=== PATIENT | female | born 1945 | race Caucasian/White ===

== ENCOUNTER → 2017-09-01 18:54 | Outpatient (CLI) | payer MEDICARE, BC ==
[2016-06-02 12:24] VITALS: BMI 28.8
[~2017-09-01 18:54] MED LIST: AMBIEN10 MG PO; ASPIRIN EC81 M1 PO; MEDROL DOSE PACK4 MG PO; OMEPRAZOLE CAP 20M; PACERONE100 MG PO; PRAVASTATIN SOD10 MG PO
== END | disposition home or self-care (01) ==
LOC: D.MAMMO 14:30
DX: Z12.31 Encounter for screening mammogram for malignant neoplasm of breast (principal)

== ENCOUNTER → 2017-09-23 16:47 | Outpatient (CLI) | payer MEDICARE, BC ==
[2016-06-02 12:24] VITALS: BMI 28.8
== END | disposition home or self-care (01) ==
LOC: D.MAMMO 15:00
DX: R92.8 Other abnormal and inconclusive findings on diagnostic imaging of breast (principal)

== ENCOUNTER → 2017-10-30 12:40 | Outpatient (CLI) | payer MEDICARE, OTHER ==
[2016-06-02 12:24] VITALS: BMI 28.8
[2017-10-31 07:22] LABS: IMMUNOGLOBULIN E 65 IU/mL (0-100)
[2017-11-02 10:10] LABS: ANA REFLEX - DIRECT Negative (Negative)
[2017-11-02 15:20] LABS: ANGIOTENSIN CONVERTING ENZYME 52 U/L (14-82)
[2017-11-03 17:11] LABS: FUNGAL - ASP FLAVUS Negative (Neg:<1:1); FUNGAL - ASP NIGER Negative (Neg:<1:1); FUNGAL - ASPER FUMIGATUS Negative (Neg:<1:1)
== END | disposition home or self-care (01) ==
LOC: D.RT 10-29 10:00 → D.LAB 10-29 11:00 → D.CT 10-29 11:30 → D.RT 12:40
PROVIDERS: Internal Medicine Pulmonary Disease
DX: D86.89 Sarcoidosis of other sites (principal)

== ENCOUNTER 2018-06-22 13:16 | Inpatient (IN) | payer MEDICARE, OTHER ==
[~2018-06-22] VITALS: Ht 168.9 cm; Wt 80.7 kg
--- NOTE | ~2018-06-22 | CN ---
PATIENT NAME:NURA LOYA MEDICAL RECORD: [id number] : 45 LOCATION:[facility] D.2116 ADMIT DATE: 06/23/18 ACCOUNT: [id number] CONSULTING PHYSICIAN: STEVEN PALOMARES MD REFERRING PHYSICIAN: VIOLA YEBOAH MD DATE OF CONSULTATION: 06/23/2018 HISTORY OF PRESENT ILLNESS: This is a 73-year-old female with a history of atrial fibrillation and no other significant cardiac history feeling bad for about the past week to 10 days. She was seen at Dr. Yeboah's office, found to have AFib with RVR as well as a urinary tract infection and intravascular volume depletion, feeling much better post-IV fluids and antibiotics. Rates are coming down somewhat. PAST MEDICAL HISTORY: Includes, 1. History of sarcoidosis. 2. Dyslipidemia. 3. Gastroesophageal reflux disease. 4. Hypertension. ALLERGIES: None known. MEDICATIONS: Typically include amiodarone 100 mg p.o. daily, pravastatin 10 every day, aspirin 81 every day. SOCIAL HISTORY: Lives here in [place]. 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 She is a nonsmoker, nondrinker. REVIEW OF SYSTEMS: The patient reports easy bruising but reports no swollen glands. The patient reports no fever, no night sweats, no significant weight gain, no significant weight loss. No significant exercise tolerance. The patient reports no dry eyes, no irritation, no vision change. Patient reports no difficulty hearing and no ear pain. Patient reports no frequent nose bleeds or nose and sinus problems. Patient reports on arm pain on exertion. No shortness of breath while lying down. No history of heart murmur. Patient reports no cough, no wheezing or coughing up blood. Patient reports no abdominal pain, no vomiting. Normal appetite. No diarrhea and not vomiting blood. No nausea and no constipation. Patient reports no incontinence. No difficulty urinating. No hematuria. No increased frequency. Patient reports no muscle aches. No weakness, no arthralgias, no back pain. No swelling of the extremities. Patient reports no abnormal mole, no jaundice, no rashes. Reports no loss of consciousness. No weakness and no numbness. No seizures, dizziness, or headaches. The patient reports no depression, no sleep disturbance, feeling safe in a relationship and no alcohol abuse. Patient reports on fatigue. Reports no runny nose or sinus pressure. No itching, no hives, and no frequent sneezing. PHYSICAL EXAMINATION: GENERAL: Pleasant female, no acute distress. VITAL SIGNS: 104/57, pulse 89 and regular. HEENT: Normocephalic, atraumatic. NECK: No JVD or bruit. HEART: Regular, II/ systolic ejection murmur. LUNGS: Good air excursion. ABDOMEN: Soft, nontender. CONSULT REPORT [id number] NURA LOYA EXTREMITIES: Pulses are well preserved, 2+ with no edema. NEUROLOGIC: Grossly intact. DIAGNOSTIC DATA: ECG confirms Afib. IMPRESSION AND PLAN: Suspect developed urinary tract infection. Subsequent atrial fibrillation, recurrent and intravascular volume depletion. We will increase amiodarone, continue IV fluids. The patient has been hesitant for anticoagulation in the past. Given this, may consider a CARY cardioversion at early standpoint. TRANSINT:[id number] Voice Confirmation ID: [id number] DOCUMENT ID: [id number] STEVEN PALOMARES MD at 1116 CC: [id number] DICTATION DATE: 06/23/18 0847 SUPERVISOR DRILLING AND SHOOTING: 06/23/18 0923 DIS IN 06/24/18 [facility] [address] [place] [address]
--- NOTE | ~2018-06-22 | MORECARE ---
CASE MANAGEMENT DISCHARGE SUMMARY PATIENT: NURA LOYA UNIT: [id number] ADM DATE: 06/23/18 AGE: 73 : 45 SEX: F ROOM/BED: D.2116 AUTHOR: YAW, CYBER SECURITY CONSULTANT PHYSICIAN: REFERRING PHYSICIAN: VIOLA MERRILL MD DATE OF SERVICE: 06/23/18 Discharge Plan Patient Name: NURA LOYA Facility: [facility]:[place] : 1945 Planned Disposition: Home Anticipated Discharge Date: 06/24/18 Discharge Date: 06/24/2018 Expected LOS: 1 Initial Reviewer: [email or web address] Initial Review Date: 06/25/2018 Generated: 06/25/18 10:28 am Patient Name: NURA LOYA Page [id number] All edits/amendments must be made on the electronic document DICTATION DATE: 06/25/18927 MUCKING MACHINE OPERATOR: 06/25/18927 RPT#: [id number] DC DATE:06/24/18 STATUS: DIS IN [facility] [address] [place] [address] END OF REPORT
[~2018-06-22 13:16] MED LIST changes: -OMEPRAZOLE CAP 20M; +OMEPRAZOLE20 M1 PO
[2018-06-22 13:49] LABS: BASOPHILS 0.3 % (0-2); EOSINOPHILS 0.4 % (0-7); HEMATOCRIT 38.7 % (36.0-48.0); HEMOGLOBIN 13.5 g/dL (12-16); IMMATURE GRANULOCYTES 0.1 % (0-5); LYMPHOCYTES 20.6 % (15-50); MCH 31.5 pg (26.0-34.0); MCHC 34.9 g/dL (31.0-37.0); MCV 90.2 fL (80.0-100.0); MEAN PLATELET VOLUME 10.1 fL (7.4-10.4); MONOCYTES 10.5 % (2-11); NEUTROPHILS 68.1 % (40-80); RBC 4.29 10x6/uL (4.00-5.40); RDW 13.2 % (11.5-14.5); WBC 7.4 10x3/uL (4.8-10.8)
[2018-06-22 13:51] LABS: PLATELET COUNT 229 10x3/uL (130-400)
[2018-06-22 14:00] VITALS: BP 123/79
[2018-06-22 14:01] LABS: APTT 30.9 SECONDS (22.8-39.4); INR 1.01 (0.85-1.17); PROTIME 12.9 SECONDS (11.6-15.0)
[2018-06-22 14:05] LABS: ALBUMIN 3.3 g/dL (3.4-5.0); ALKALINE PHOSPHATASE 99 U/L (46-116); ALT (SGPT) 16 U/L (10-68); BILIRUBIN - TOTAL 0.52 mg/dL (0.2-1.3); CALC OSMOLALITY 273 mosm/kg (275-300); CALCIUM 8.9 mg/dL (8.5-10.1); CARBON DIOXIDE 24.2 mmol/L (21.0-32.0); CHLORIDE - SERUM 100 mmol/L (98-107); GLUCOSE 110 mg/dL (74-106); PROTEIN - SERUM 8.4 g/dL (6.4-8.2); SODIUM 135 mmol/L (136-145); UREA NITROGEN 20 mg/dL (7-18); eGFR NON AFRICAN AMERICAN 26 mL/min (90-120)
[2018-06-22 14:15] LABS: CKMB 1.7 U/L (0.0-3.6); TROPONIN-I < 0.017 ng/mL (0.000-0.060)
[2018-06-22 15:00] VITALS: BP 120/67
[2018-06-22 16:33] VITALS: BP 119/72
[2018-06-22 17:30] VITALS: BP 110/75
[2018-06-22 17:40] LABS: APPEARANCE CLOUDY (CLEAR); COLOR YELLOW (YELLOW)
[2018-06-22 17:41] LABS: BILIRUBIN NEGATIVE (NEGATIVE); GLUCOSE NEGATIVE (NEGATIVE); KETONE NEGATIVE (NEGATIVE); NITRITE NEGATIVE (NEGATIVE); PROTEIN 1+ mg/dL (NEGATIVE); SPECIFIC GRAVITY 1.015 (1.005-1.020); UROBILINOGEN NORMAL (NORMAL)
[2018-06-22 17:43] LABS: BACTERIA FEW /hpf (NONE SEEN); EPITHELIAL CELLS 0-5 /hpf (0-5)
[2018-06-22 18:00] VITALS: BP 108/81
[2018-06-22 19:38] LABS: CKMB 1.9 U/L (0.0-3.6); CREATINE KINASE 115 UL (21-215)
[2018-06-22 19:50] LABS: TROPONIN-I < 0.017 ng/mL (0.000-0.060)
[2018-06-23] VITALS (7 sets, daily range): BP systolic 102–145; BP diastolic 56–69; Ht 168.9 cm; Wt 80.7 kg
[2018-06-23 01:31] LABS: CKMB 2.2 U/L (0.0-3.6); CREATINE KINASE 121 UL (21-215); TROPONIN-I < 0.017 ng/mL (0.000-0.060)
[2018-06-23 07:00] LABS: BASOPHILS 0.2 % (0-2); HEMATOCRIT 36.3 % (36.0-48.0); HEMOGLOBIN 12.1 g/dL (12-16); IMMATURE GRANULOCYTES 0.2 % (0-5); LYMPHOCYTES 20.4 % (15-50); MCH 30.7 pg (26.0-34.0); MCHC 33.3 g/dL (31.0-37.0); MCV 92.1 fL (80.0-100.0); MEAN PLATELET VOLUME 9.9 fL (7.4-10.4); MONOCYTES 17.4 % (2-11); NEUTROPHILS 59.8 % (40-80); PLATELET COUNT 206 10x3/uL (130-400); RBC 3.94 10x6/uL (4.00-5.40); RDW 13.2 % (11.5-14.5)
[2018-06-23 07:42] LABS: CALC OSMOLALITY 276 mosm/kg (275-300); CALCIUM 8.1 mg/dL (8.5-10.1); CARBON DIOXIDE 26.1 mmol/L (21.0-32.0); CHLORIDE - SERUM 103 mmol/L (98-107); CKMB 2.1 U/L (0.0-3.6); CREATINE KINASE 112 UL (21-215); CREATININE - SERUM 1.7 mg/dL (0.6-1.3); GLUCOSE 95 mg/dL (74-106); POTASSIUM - SERUM 3.9 mmol/L (3.5-5.1); SODIUM 137 mmol/L (136-145); TROPONIN-I < 0.017 ng/mL (0.000-0.060); UREA NITROGEN 20 mg/dL (7-18); eGFR NON AFRICAN AMERICAN 31 mL/min (90-120)
[2018-06-24] VITALS: BP 114/58
[2018-06-24 04:00] VITALS: BP 104/59
[2018-06-24 05:35] LABS: ANION GAP 12.6 mmol/L (8-16); CARBON DIOXIDE 26.4 mmol/L (21.0-32.0); CREATININE - SERUM 1.3 mg/dL (0.6-1.3)
[2018-06-24 07:46] VITALS: BP 113/71
[2018-06-24 11:43] VITALS: BP 112/71
[2018-06-24] MEDS ORDERED: CORDARONE200 MG PO (15:21)
== END 2018-06-24 16:05 | disposition home or self-care (01) | DRG 309 ==
LOC: D.ER 13:16 → D.EDHOLD 18:42 → OBSVTIME 18:42 → D.M2 18:42
PROVIDERS: Family Medicine
DX: I48.91 Unspecified atrial fibrillation (principal); N39.0 Urinary tract infection, site not specified; I12.9 Hypertensive chronic kidney disease with stage 1 through stage 4 chronic kidney disease, or unspecified chronic kidney disease; N18.3 Chronic kidney disease, stage 3 (moderate); N28.9 Disorder of kidney and ureter, unspecified; K21.9 Gastro-esophageal reflux disease without esophagitis; E78.5 Hyperlipidemia, unspecified; E86.9 Volume depletion, unspecified

== ENCOUNTER → 2019-03-30 09:34 | Outpatient (CLI) | payer MEDICARE, OTHER ==
[2018-06-23 13:28] VITALS: BMI 29.2
--- NOTE | ~2019-03-30 | EC ---
PATIENT:NURA LOYA DATE OF SERVICE: 03/30/19 SEX: F MEDICAL RECORD: [id number] DATE OF : 45 LOCATION:D.[facility] AGE OF PATIENT: 73 ADMISSION DATE: 03/30/19 REFERRING PHYSICIAN: INTERPRETING PHYSICIAN: STEVEN PALOMARES MD ECHOCARDIOGRAM REPORT ECHO CHARGES 4 ECHO COMPLETE Date: 03/30/19 CLINICAL DIAGNOSIS: CAD HX OF ATRIAL FIB/PULM HTN/HTN ECHOCARDIOGRAPHIC MEASUREMENTS (adult normal given) AC root (d.<3.7cm) 3.6 cm LV Septum d (<1.2 cm> 1.3 cm Valve Excursion 1.6 cm LV Septum (systole) 1.8 cm Left Atria (s.<4.0cm> 4.5 cm LVPW d(<1.2cm) 1.6 cm RV (d.<2.3cm) 3.6 cm LVPW (sytole) 1.7 cm LV diastole(<5.6CM) 4.4 cm MV E-F(>70mm/sec) cm LV systole 3.4 cm LVOT Diameter 1.6 cm MV exc.(>10mm) 1.6 cm Est.ejection fraction (50-75%) % DOPPLER: LVIT cm/sec A cm/sec E 65.0 cm/sec LA cm/sec RVSP 34 mmHg LVOT 72.0 cm/sec AOP1/2T m/s Asc. Ao 105 cm/sec RVOT 68 cm/sec RA cm/sec PA 82 cm/sec AV Gradient Peak 4.37 mmHg AV Mean 2.31 mmHg AV Area 1.4 cm MV Gradient Peak 3.75 mmHg MV Mean 1.26 mmHg MV Area cm COMMENTS: Campus Director: 2 [employer] Lawyer: 3 Dr. Ureña TAPE# PACS Pericardial Effusion N DATE OF SERVICE: Adequate 2D, color flow, spectral Doppler, and M-Mode. Mild LVH. LV internal dimensions are normal. Wall motion is normal. EF is greater than or equal to 55%. Aortic valve is tricuspid. No evidence of stenosis on Doppler interrogation. Left atrium is dilated at 4.5 cm. Mitral valve is thickened. Mild to moderate MR. Right-sided chambers size grossly normal. Mild TR. TRANSINT:[id number] Voice Confirmation ID: [id number] DOCUMENT ID: [id number] ECHOCARDIOGRAM REPORT [id number] NURA LOYA GREGORY A MD CC: [id number] DICTATION DATE: 03/31/19 1304 POLICY CHANGE CLERK: 03/31/19 1328 DEP CLI 03/30/19 [place] [id number] [place] [id number]
[~2019-03-30 09:34] MED LIST changes: +CORDARONE200 MG PO
== END | disposition home or self-care (01) ==
LOC: D.HCCARDIO 09:34
PROVIDERS: ATTEND Internal Medicine Interventional Cardiology
DX: I25.10 Atherosclerotic heart disease of native coronary artery without angina pectoris (principal)

== ENCOUNTER 2019-05-31 11:34 | Outpatient (CLI) | payer MEDICARE, OTHER ==
[~2019-05-31] VITALS: Ht 168.9 cm; Wt 82.7 kg
--- NOTE | ~2019-05-31 | HEMODYNAMI ---
PATIENT:NURA LOYA MEDICAL RECORD: [id number] : 45 LOCATION:[facility] ADMISSION DATE: 05/31/19 Generatedon:05/31/201913:22 Patient name: NURA LOYA Patient #: [id number] SSN: D OB: 1945 Date of study: 05/31/2019 Page: Of Hemodynamic Procedure Report Patient Data Patient Demographics Procedure consent was obtained First Name: NURA Gender: Female Last Name: VINCENZO : 1945 [facility] Initial: B Age: 74 year(s) Patient #: [id number] Race: Additional ID: [id number] Contact details Address: [address] [place] [address] State: [place] City: [place] Zip code: [address] Past Medical History Allergies: No known allergies Admission Admission Data Admission Date: 05/31/2019 Admission Time: 11:34 Weight (lbs.): 182.98 Weight (kg.): 83 Lab Results Lab Result Date: 05/31/2019 Lab Result Time: 0:00 Biochemistry Name Units Result Min Max BUN mg/dl 14 --(--*-)-- 7 18 Creatinine mg/dl 1.5 --(----)-* 0.6 1.3 eGFR ml/min 36 *-(----)-- 90 120 NONAFRICAN CBC Name Units Result Min Max Hematocrit % 37.2 *-(----)-- 42 54 Hemoglobin g/dl 12.6 -*(----)-- 13.5 17.5 Procedure Procedure Types Cath Procedure Diagnostic Procedure Cardioversion External Procedure Description Procedure Date Procedure Date: 05/31/2019 Procedure Start Time: 13:09 Procedure End Time: 13:18 Procedure Staff Name Function Stefano Barker MD Performing Physician Derick Perez RN Nurse Mily Grier RT Monitor Danielle Ferguson RT Monitor Han Mitchell RT Monitor Lonny Mancia Jr, CRNA Additional personnel Procedure Data Cath Procedure Fluoroscopy Diagnostic fluoroscopy Total fluoroscopy Time: 0 time: 0 min min Diagnostic fluoroscopy Total fluoroscopy dose: 0 dose: 0 mGy mGy Contrast Material Contrast Material Type Amount (ml) Isovue 300 0 Estimated blood loss: 0 ml Procedure Complications No complications Procedure Medications Medication Administration Route Dosage 0.9% NaCl I.V. 100 ml/hr Oxygen etCO2 Nasal cannula 4 l/min Refer to Anesthesia Notes for Sedation Medications Hemodynamics Rest HGB: 12.6 (g/dl) Heart Rate: 78 (bpm) Snapshots Pre Cath Intra NCS Post Cath Vital Signs Time Heart Resp SPO2 etCO2 NIBP (mmHg) Rhythm Pain Sedation Rate (ipm) (%) (mmHg) Status Level (bpm) 12:56:29 77 15 98 29.2 141/92(113) NSR 0 (11) 10(A) , No pain 13:00:41 81 16 99 29.2 136/81(118) NSR 0 (11) 10(A) , No pain 13:06:05 93 13 100 23.9 151/77(116) NSR 0 (11) 10(A) , No pain 13:10:23 83 17 100 28.4 141/79(122) NSR 0 (11) 8(A) , No pain 13:14:41 70 16 97 0 114/63(90) NSR 0 (11) 9(A) , No pain 13:18:47 69 16 97 15.7 117/73(106) NSR 0 (11) 9(A) , No pain Medications Time Medication Route Dose Verified Delivered Reason Notes Effective ness by by 12:58:23 0.9% NaCl I.V. 100 Derick Derick Per ml/hr Ana Perez physician RN RN 12:58:42 Oxygen etCO2 4 Derick Derick for low Nasal l/min Ana Perez 02 sats cannula RN RN 13:08:19 Refer to Derick Sepulveda for Anesthesia Ana Perez sedation Notes for RN RN Sedation Medications Procedure Log Time Note 12:33:25 Informed consent obtained and on chart 12:33:30 Diagnostic Cath Status : Elective 12:33:46 Time tracking: Regular hours (M-F 7:00 - 5:00) 12:33:51 Plan of Care:Hemodynamics will remain stable., Cardiac rhythm will remain stable., Comfort level will be maintained., Respiratory function will remain adequate., Patient/ family verbilizes understanding of procedure., Procedure tolerated without complication., Recovers from procedure without complications.. 12:40:45 Derick Perez RN sent for patient. Start room use. 12:47:23 H&P Date Dictated: 05/23/2019 Within 30 days and on chart., H&P Addendum completed by physician on day of procedure. (MUST COMPLETE FOR ALL OUTPATIENTS). 12:47:28 Patient allergic to No known allergies 12:50:32 Patient Weight : 182.98 lbs 12:50:43 Patient arrived from Pre/Post Procedure Room to CCL 1. Patient remains on bed/stretcher for procedure. 12:50:44 Warm blankets applied, and dickson hugger turned on for patient comfort. 12:50:45 Correct patient and procedure confirmed by team. 12:50:45 ECG and BP/O2 sat monitors applied to patient. 12:51:23 Lab Result : Creatinine 1.5 mg/dl 12:51:23 Lab Result : BUN 14 mg/dl 12:51:23 Lab Result : eGFR NONAFRICAN 36 ml/min 12:51:23 Lab Result : Hematocrit 37.2 % 12:51:23 Lab Result : Hemoglobin 12.6 g/dl 12:55:28 Vital chart was started 12:55:31 Baseline sample Acquired. 12:55:33 Baseline sample Acquired. 12:55:40 Baseline sample Acquired. 12:55:46 Rhythm: atrial fibrillation 12:55:47 Full Disclosure recording started 12:55:48 Pre-procedure instructions explained to patient. 12:55:48 Pre-op teaching completed and patient verbalized understanding. 12:55:51 Family in patients room. 12:55:52 Patient NPO since Midnight. 12:55:56 Is patient on blood thinner?Yes 12:56:01 ACC The patient was administered the following blood thiners within the last 24 hours: Xarelto 12:56:10 XARELTO LAST NIGHT 12:56:12 Patient diabetic? No. 12:56:36 Previous problem with sedation/anesthesia? Yes NAUSEA 12:56:39 Snore? Yes 12:56:40 Sleep apnea? No 12:56:41 Deviated septum? No 12:56:42 Opens mouth fully? Yes 12:56:43 Sticks out tongue? Yes 12:56:45 Airway obstruction? No ? 12:56:48 Dentures? Yes OUT 12:56:52 Patient pain scale 0/10 ?. 12:56:58 IV patent on arrival in left hand with 0.9% NaCl at [facility]. 12:57:01 Lab results completed and on chart. 12:57:07 Alarms reviewed by R. N. 12:57:07 Sharps counted by scrub and verified by R.N. 12:57:28 Quick Combo opened to sterile field. 12:58:23 0.9% NaCl 100 ml/hr I.V. was administered by Derick Perez RN; Per physician; 12:58:42 Oxygen 4 l/min etCO2 Nasal cannula was administered by Derick Perez RN; for low 02 sats; 13:00:19 Baseline sample Acquired. 13:06:57 Lonny Mancia Jr, CRNA present and monitoring patient for TIVA. 13:07:19 --------ALL STOP TIME OUT------ 13:07:19 Final Timeout: patient, procedure, and site verified with staff and physician. All members of the team are in agreement. 13:07:31 Fire Safety Assessment: C--Open oxygen or nitrous oxide is being used. 13:07:42 Sedation plan: TIVA Medication:Propofol 13:08:19 Refer to Anesthesia Notes for Sedation Medications was administered by Derick Perez RN; for sedation; 13:09:11 Procedure started. 13:09:12 ------Cardioversion------ 13:09:13 Quick combo pads placed on patients chest and back. 13:10:59 Defibrillator synced and charged to 300 Joules. 13:11:12 Shock delivered. 13:12:11 Patient cardioverted to sinus rhythm . 13:12:19 Procedure ended.(Physican Out) 13:17:13 Fluoroscopy time 00.00 minutes. 13:17:15 Fluoroscopy dose: 0 mGy 13:17:15 Flurop Dose total: 0 13:17:18 Contrast amount:Isovue 300 0ml. 13:17:20 Sharps counted by scrub and verified by R.N. 13:17:23 Post-procedure physical assessment completed. ASA score P 2 - A patient with mild systemic disease as per Stefano Barker MD. 13:17:27 Post procedure rhythm: sinus rhythm 13:17:29 Estimated blood loss: 0 ml 13:17:30 Post procedure instruction explained to patient.Patient verbalizes understanding. 13:17:30 Patient needs reinforcement of post procedure teaching. 13:18:26 Procedure and supply charges have been captured, reviewed, submitted and are correct. 13:18:28 Procedure Complication : No complications 13:18:30 Vital chart was stopped 13:18:31 Report given to Pre/Post Procedure Room. 13:18:32 See physician's report for complete and final results. 13:18:35 Patient transfered to Pre/Post Procedure Room with Bed. 13:18:36 Procedure ended. 13:18:36 Full Disclosure recording stopped 13:21:24 End room use (Document Last) Device Usage Item Manufacture Quantity Catalog Hospital Part Current Minimal Lot# / Name Number Charge Number [facility] [place]# Code Emergent Views 1 [id number] Combo Signature Audit [place] Stage Time Signature Unsigned Intra-Procedure 05/31/2019 Mily Girer 1:22:02 PM RT(R) Signatures Monitor : Mily Grier Signature : RT Date : Time : Monitor : Danielle Ferguson Signature : RT Date : Time : Monitor : Han Mitchell RT Signature : Date : Time : [address] [place] [address]
--- NOTE | ~2019-05-31 | OP ---
PATIENT NAME: NURA LOYA MEDICAL RECORD: [id number] :45 LOCATION:D.CAT ADMISSION DATE: SURGEON: STEVEN PALOMARES MD DATE OF OPERATION: 05/31/2019 PROCEDURE: Cardioversion. DESCRIPTION OF PROCEDURE: After general sedation via TIVA via anesthesia, a single synchronized shock restored atrial fibrillation to normal sinus rhythm. IMPRESSION: Successful cardioversion on Nura Loya. COMPLICATIONS: None. DISPOSITION: To recovery room, stable. TRANSINT:[id number] Voice Confirmation ID: [id number] DOCUMENT ID: [id number] STEVEN PALOMARES MD CC: [id number] DICTATION DATE: 05/31/19 1315 JIGGER OPERATOR: 05/31/19 1352 [facility] [address] [place] [id number]
[2019-05-31 12:10] VITALS: BP 138/68; Ht 168.9 cm; Wt 82.7 kg
[2019-05-31] MEDS ORDERED: XARELTO10 MG PO (12:14)
[2019-05-31 12:24] LABS: BASOPHILS 0.2 % (0-2); EOSINOPHILS 1.2 % (0-7); HEMATOCRIT 37.2 % (36.0-48.0); HEMOGLOBIN 12.6 g/dL (12-16); IMMATURE GRANULOCYTES 0.2 % (0-5); LYMPHOCYTES 21.1 % (15-50); MCH 31.5 pg (26.0-34.0); MCHC 33.9 g/dL (31.0-37.0); MEAN PLATELET VOLUME 10.1 fL (7.4-10.4); MONOCYTES 13.9 % (2-11); NEUTROPHILS 63.4 % (40-80); PLATELET COUNT 179 10x3/uL (130-400); RDW 13.3 % (11.5-14.5); WBC 5.7 10x3/uL (4.8-10.8)
[2019-05-31 12:30] LABS: INR 1.82 (0.85-1.17); PROTIME 20.5 SECONDS (11.6-15.0)
[2019-05-31 12:40] LABS: ANION GAP 12.7 mmol/L (8-16); CALCIUM 8.5 mg/dL (8.5-10.1); CARBON DIOXIDE 25.9 mmol/L (21.0-32.0); CREATININE - SERUM 1.5 mg/dL (0.6-1.3); POTASSIUM - SERUM 3.6 mmol/L (3.5-5.1)
--- NOTE | 2019-05-31 13:59 | NUR ---
1345 PT JUVE PO FLUIDS WITH NO C/O NAUSEA. STATES DOES NOT WANT SANDWICH, ONLY SOMETHING TO DRINK. NSR, RATE 64. DENIES ANY C/O CHEST PAIN. CALL LIGHT IN REACH.
--- NOTE | 2019-05-31 15:20 | NUR ---
1405 PT JUVE PO FLUIDS, DENIES NEEDS AT THIS TIME. NSR, DENIES ANY C/O CHEST DISCOMFORT. VSS. DR PALOMARES HAS ROUNDED. 1425 IV DC'D WITH CATH INTACT AND PT IS DRESSING FOR DC. 1440 DC INSTRUCTIONS REVIEWED WITH PT WHO VEBALIZES UNDERSTANDING. PT IS ALERT AND DENIES ANY C/O. PT ESCORTED TO PRIVATE AUTO VIA WC BY NURSE WITH LINDSAY DRIVING HER HOME.
== END 2019-05-31 14:40 | disposition home or self-care (01) ==
LOC: D.CATH 11:34
PROVIDERS: ATTEND Internal Medicine Interventional Cardiology
DX: I48.91 Unspecified atrial fibrillation (principal); Z01.812 Encounter for preprocedural laboratory examination

== ENCOUNTER 2019-06-14 18:47 | Emergency (ER) | payer MEDICARE, OTHER ==
[~2019-06-14] VITALS: Ht 168.9 cm; Wt 82.7 kg
[~2019-06-14 18:47] MED LIST changes: +XARELTO10 MG PO
[2019-06-14 19:27] VITALS: Ht 168.9 cm; Wt 82.7 kg
[2019-06-14] MEDS ORDERED: ULTRAM50 MG PO (21:31)
[2019-06-14 21:55] VITALS: BP 135/74
== END 2019-06-14 21:56 | disposition home or self-care (01) ==
LOC: D.ER 18:47
DX: S62.91XA Unspecified fracture of right hand, initial encounter for closed fracture (principal); W19.XXXA Unspecified fall, initial encounter; T14.8XXA Other injury of unspecified body region, initial encounter; I48.91 Unspecified atrial fibrillation

== ENCOUNTER → 2019-08-24 08:55 | Outpatient (CLI) | payer MEDICARE, OTHER ==
[2019-06-14 19:27] VITALS: BMI 28.9
[~2019-08-24 08:55] MED LIST changes: +ULTRAM50 MG PO
--- NOTE | 2019-08-28 09:56 | EC ---
PATIENT:NURA LOYA DATE OF SERVICE: 08/24/19 SEX: F MEDICAL RECORD: [id number] DATE OF : 45 [facility] AGE OF PATIENT: 74 ADMISSION DATE: 08/24/19 REFERRING PHYSICIAN: INTERPRETING PHYSICIAN: STEVEN PALOMARES MD ECHOCARDIOGRAM REPORT ECHO CHARGES 4 ECHO COMPLETE Date: 08/24/19 CLINICAL DIAGNOSIS: A-FIB/HTN ECHOCARDIOGRAPHIC MEASUREMENTS (adult normal given) AC root (d.<3.7cm) 3.0 cm LV Septum d (<1.2 cm> 1.0 cm Valve Excursion 1.6 cm LV Septum (systole) 1.4 cm Left Atria (s.<4.0cm> 4.4 cm LVPW d(<1.2cm) 1.2 cm RV (d.<2.3cm) 2.2 cm LVPW (sytole) 1.7 cm LV diastole(<5.6CM) 5.5 cm MV E-F(>70mm/sec) cm LV systole 3.8 cm LVOT Diameter 1.8 cm MV exc.(>10mm) cm Est.ejection fraction (50-75%) % DOPPLER: LVIT cm/sec A 33.0 cm/sec E 94.0 cm/sec LA cm/sec RVSP 34.0 mmHg LVOT 74.0 cm/sec AOP1/2T m/s Asc. Ao 87.0 cm/sec RVOT 40.0 cm/sec RA cm/sec PA 85.0 cm/sec AV Gradient Peak 3.0 mmHg AV Mean 1.8 mmHg AV Area 2.0 cm MV Gradient Peak 4.0 mmHg MV Mean 1.6 mmHg MV Area cm COMMENTS: OP - HC Belt Changer: 1 PAULINO MIMI Song Plugger: 3 Dr. Ureña TAPE# PACS Pericardial Effusion N DATE OF SERVICE: Adequate 2D, Color Flow, Spectral Doppler, and M-Mode Borderline LVH. LV internal dimension is normal. Wall motion is normal. EF is greater than or equal to 55%. Aortic valve is tricuspid. No evidence of stenosis by Doppler interrogation. Left atrium is dilated at 4.4 cm. Mitral valve shows no prolapse. Mild MR. Right-sided chambers are grossly normal. Mild TR. ECHOCARDIOGRAM REPORT [id number] NURA LOYA TRANSINT:[id number] Voice Confirmation ID: [id number] DOCUMENT ID: [id number] STEVEN PALOMARES MD at 0956 CC: [id number] DICTATION DATE: 08/25/19 1350 RECEIVING TELLER: 08/26/19 0000 DEP CLI 08/24/19 [place] [id number] [place] [id number]
== END | disposition home or self-care (01) ==
LOC: D.HCCECHO 08:55
PROVIDERS: ATTEND Internal Medicine Interventional Cardiology
DX: R06.02 Shortness of breath (principal)

== ENCOUNTER 2020-03-05 10:47 | Emergency (ER) | payer MEDICARE, OTHER ==
[~2020-03-05] VITALS: Ht 168.9 cm; Wt 82.7 kg
[2020-03-05 10:52] VITALS: BP 134/87; Ht 168.9 cm; Wt 82.7 kg
[2020-03-05] MEDS ORDERED: VOLTAREN25 MG PO (11:58)
[2020-03-05] MEDS ORDERED: ULTRAM50 MG PO (11:58)
== END 2020-03-05 12:12 | disposition home or self-care (01) ==
LOC: D.ER 10:47
DX: S52.532A Colles' fracture of left radius, initial encounter for closed fracture (principal); S52.612A Displaced fracture of left ulna styloid process, initial encounter for closed fracture; W19.XXXA Unspecified fall, initial encounter; Y93.9 Activity, unspecified; Y92.9 Unspecified place or not applicable; I48.91 Unspecified atrial fibrillation; K21.9 Gastro-esophageal reflux disease without esophagitis

== ENCOUNTER 2020-03-07 11:14 | Day surgery (SDC) | payer MEDICARE, OTHER ==
[~2020-03-07] VITALS: Ht 167.6 cm; Wt 82.6 kg
[~2020-03-07 11:14] MED LIST changes: +VOLTAREN25 MG PO
[2020-03-07 12:18] LABS: BASOPHILS 0.1 % (0-2); EOSINOPHILS 0.1 % (0-7); HEMOGLOBIN 13.4 g/dL (12-16); IMMATURE GRANULOCYTES 0.2 % (0-5); LYMPHOCYTES 6.8 % (15-50); MCH 30.8 pg (26.0-34.0); MCHC 31.9 g/dL (31.0-37.0); MCV 96.6 fL (80.0-100.0); MEAN PLATELET VOLUME 10.3 fL (7.4-10.4); MONOCYTES 7.8 % (2-11); PLATELET COUNT 195 10x3/uL (130-400); RBC 4.35 10x6/uL (4.00-5.40); WBC 9.7 10x3/uL (4.8-10.8)
[2020-03-07] MEDS ORDERED: ZOFRAN4 MG PO (12:45)
[2020-03-07] MEDS ORDERED: HYDROCODON-ACE1 EAC7 PO (12:45)
[2020-03-07 12:55] VITALS: Ht 167.6 cm; Wt 82.6 kg
[2020-03-07] MEDS ORDERED: DURICEF500 MG PO (14:55)
--- NOTE | 2020-03-07 15:52 | NUR ---
1548-REC'D FROM RR. DROWSY,EASILY AROUSED WITH VERBAL STIMULI.DENIES PAIN. ABLE TO WIGGLE DIGITS,CAP REFILL WNL,DRESSING CDI,LEFT ARM IN SLING,ICE AND ELEVATED UPON ARRIVAL. REVIEWED DISCHARGE CRITERIA.CL IN EASY REACH. ICE WATER AT BEDSIDE
--- NOTE | 2020-03-07 16:25 | NUR ---
1615-FULL LIQUID TRAY TO ROOM.VSS.DENIES PAIN.DRESSING CDI. SLING IN PLACE,ICE PACK AND ELEVATED.CL IN EASY REACH
--- NOTE | 2020-03-07 17:18 | NUR ---
1645-REMOVED IV WITH CATH INTACT,DISPOSED INTO SHARPS,COVERED WITH GUAZE AND SECURED WITH TAPE.
--- NOTE | 2020-03-07 17:19 | NUR ---
0587-ASSISTED PT TO DRESS.VSS.DENIES PAIN.DRESSING CDI. SLING IN PLACE. ABLE TO WIGGLE DIGITS,CAP REFILL WNL,FINGERS WARM TO TOUCH. REVIEWED POST OPERATIVE INSTRUCTIONS AND CALL DR MEADOWS OFFICE TOMORROW TO CONFIRM HER FOLLOW UP APPOINTMENT.VERBALIZED UNDERSTANDING
--- NOTE | 2020-03-07 17:20 | NUR ---
1700-ESCORTED OUT VIA W/C WITH SISTER AWAITING TO DRIVE HOME.
--- NOTE | 2020-03-08 07:43 | OP ---
PATIENT NAME: NURA LOYA MEDICAL RECORD: [id number] :45 LOCATION:[facility] ADMISSION DATE: SURGEON: NILAY PANTOJA DO DATE OF OPERATION: 03/07/2020 PROCEDURE PERFORMED: Left distal radius open reduction internal fixation and open carpal tunnel release. PREOPERATIVE DIAGNOSES: Acute carpal tunnel syndrome of left hand and wrist, and closed displaced extraarticular distal radius fracture of the left wrist. POSTOPERATIVE DIAGNOSES: Acute carpal tunnel syndrome of left hand and wrist, and closed displaced extraarticular distal radius fracture of the left wrist. INDICATIONS: Ms. Loya is a 74-year-old right-hand dominant female who fell a couple of days ago onto her left wrist. She went to the ER and noted to have the distal radius fracture. She drove to my office this morning and she just had a sip of orange juice. She was complaining of numbness and tingling in the hand and a median nerve distribution and tenderness about the distal radius. I informed her that her distal radius fracture needed to be fixed as it was comminuted dorsally and shortened that we would need to fix that or she would have wrist problems and that we need to do an open carpal tunnel release at the same time due to the fact that she had numbness and tingling in the median nerve distribution. She was aware of the risks including infection, bleeding, damage to nerves and vessels, need for further surgery, malunion, nonunion and failure of implants and signed the consent. SURGEON: Nilay Pantoja DO DESCRIPTION OF PROCEDURE: The patient was taken to the operative suite, laid in the supine position after given a block by anesthesia in preoperative area, given a gram of Ancef preoperatively. The left upper extremity was then prepped and draped in sterile fashion. Timeout was performed. Everyone was in agreeance with the correct side, site, patient and procedure. We then exsanguinated the left upper extremity with an Esmarch and tourniquet was inflated to 250 mmHg it was up for 46 minutes. I then began first with the carpal tunnel, made an incision along the fourth ray in the palmar aspect of the hand just distal to the wrist crease. Careful dissection was made down to the transverse carpal ligament. It was quite thick and this was transected. I then used a pediatric nasal speculum and released the transcarpal ligament both proximally and distally, making a nice release of the median nerve there. I then moody the attention to the distal radius fracture and made an incision along the flexor carpi radialis tendon, took the tendon radially and then went through the tendon sheath on the dorsal aspect. Then, a careful dissection made down to the distal radius fracture, the pronator quadratus was cleaned off. Reduction maneuver was made and a pin was placed to hold the distal radius for reduction. Plate was then put almost once it was in appropriate position, I put a screw in the shaft and slid the plate slightly distal and put a distal locking screws in and then locking screws in the shaft. This had a nice reduction, it was in good position on x-ray and AP and lateral and the K-wires were removed, holding the fracture and the plate, and then the tourniquet was let down, any bleeding was coagulated with a pickup and a Bovie and it was irrigated and then Donovan Campos, certified surgical speech pathology assistant did the closing, closed the carpal tunnel site with 4-0 nylon in a horizontal mattress fashion and then a 3-0 Vicryl in an inverted interrupted fashion and the distal radius incision over the FCR and OPERATIVE REPORT [id number] NURA LOYA glue on top of that. She was then placed in a volar splint after being dressed with Adaptic, 4 x 4s, and cast padding and a volar splint placed and secured with an Ozzy wrap. She was awakened and taken to recovery in stable condition. Blood loss was approximately 25 mL. COMPLICATIONS: None. TRANSINT:[id number] Voice Confirmation ID: [id number] DOCUMENT ID: [id number] NILAY PANTOJA DO at 0743 CC: [id number] DICTATION DATE: 03/07/20 1510 CONTROL OFFICER MANAGER: 03/07/20 1548 [facility] 03/07/20 [place] [id number] [place] [address]
== END 2020-03-07 17:00 | disposition home or self-care (01) ==
LOC: D.OPS 11:14
PROVIDERS: Anesthesiology; ATTEND Orthopaedic Surgery
DX: G56.02 Carpal tunnel syndrome, left upper limb (principal); S52.552A Other extraarticular fracture of lower end of left radius, initial encounter for closed fracture; X58.XXXA Exposure to other specified factors, initial encounter

== ENCOUNTER 2020-08-28 15:22 | Emergency (ER) | payer MEDICARE, OTHER ==
[~2020-08-28] VITALS: Ht 167.6 cm; Wt 79.1 kg
[~2020-08-28 15:22] MED LIST changes: +DURICEF500 MG PO; +HYDROCODON-ACE1 EAC7 PO; +ZOFRAN4 MG PO
[2020-08-28 15:52] VITALS: Ht 167.6 cm; Wt 79.1 kg
[2020-08-28 18:04] LABS: BASOPHILS 0.1 % (0-2); EOSINOPHILS 1.5 % (0-7); HEMATOCRIT 42.6 % (36.0-48.0); HEMOGLOBIN 14.2 g/dL (12-16); IMMATURE GRANULOCYTES 0.1 % (0-5); MCH 31.8 pg (26.0-34.0); MCHC 33.3 g/dL (31.0-37.0); MCV 95.3 fL (80.0-100.0); MEAN PLATELET VOLUME 10.3 fL (7.4-10.4); MONOCYTES 11.9 % (2-11); NEUTROPHILS 68.4 % (40-80); PLATELET COUNT 226 10x3/uL (130-400); RBC 4.47 10x6/uL (4.00-5.40); RDW 13.2 % (11.5-14.5); WBC 6.8 10x3/uL (4.8-10.8)
[2020-08-28 18:23] LABS: APTT 31.3 SECONDS (22.8-39.4); INR 0.92 (0.85-1.17); PROTIME 12.3 SECONDS (11.6-15.0)
[2020-08-28 18:28] LABS: ANION GAP 9.5 mmol/L (8-16); CALCIUM 8.9 mg/dL (8.5-10.1); CARBON DIOXIDE 27.9 mmol/L (21.0-32.0); CREATININE - SERUM 1.2 mg/dL (0.6-1.3); POTASSIUM - SERUM 4.4 mmol/L (3.5-5.1)
[2020-08-28 18:34] LABS: ALBUMIN 3.4 g/dL (3.4-5.0); BILIRUBIN - TOTAL 0.62 mg/dL (0.2-1.3); MAGNESIUM - SERUM 2.2 mg/dL (1.8-2.4); PROTEIN - SERUM 7.8 g/dL (6.4-8.2)
[2020-08-28 19:25] LABS: ERYTHROCYTE SEDIMENTATION RATE 65 mm/hr (0-30)
[2020-08-28 20:16] VITALS: BP 122/88
[2020-08-28] MEDS ORDERED: PREDNISONE20 MG PO (21:04)
== END 2020-08-28 21:25 | disposition home or self-care (01) ==
LOC: D.ER 15:22
PROVIDERS: Emergency Medicine
DX: H53.9 Unspecified visual disturbance (principal); R70.0 Elevated erythrocyte sedimentation rate; R51.9 Headache, unspecified; K21.9 Gastro-esophageal reflux disease without esophagitis

== ENCOUNTER → 2020-09-05 09:24 | Outpatient (CLI) | payer MEDICARE, OTHER ==
[2020-08-28 15:52] VITALS: BMI 28.1
[~2020-09-05 09:24] MED LIST changes: +PREDNISONE20 MG PO
== END | disposition home or self-care (01) ==
LOC: D.MRI 09:24
PROVIDERS: ATTEND Family Medicine
DX: H53.8 Other visual disturbances (principal)

== ENCOUNTER 2021-05-20 12:15 | Inpatient (IN) | payer MEDICARE, OTHER ==
[~2021-05-20] VITALS: Ht 167.6 cm; Wt 82.3 kg
--- NOTE | 2021-05-20 12:58 | NUR ---
PATIENT FOUND IN ROOM 2123 AT THIS TIME. PATIENT STATES ADMISSIONS BROUGHT HER TO THE ROOM. PATIENT IS A DIRECT ADMISSION FROM OFFICE. ORIENTED TO ROOM, CALL LIGHT WITHIN REACH. NO DISTRESS.
--- NOTE | 2021-05-20 13:45 | NUR ---
22 GAUGE IV PLACED TO LEFT FOREARM X 1 STICK. GOOD BLOOD RETURN, EASY FLUSH. TAPED, DATED AND SECURED WELL. PATIENT TOLERATED IV PLACMENT WELL. NO DISTRESS.
[2021-05-20 13:57] LABS: BASOPHILS 0.5 % (0-2); EOSINOPHILS 0.2 % (0-7); HEMATOCRIT 44.1 % (36.0-48.0); HEMOGLOBIN 14.9 g/dL (12-16); LYMPHOCYTES 5.3 % (15-50); MCH 32.4 pg (26.0-34.0); MCHC 33.7 g/dL (31.0-37.0); MCV 96.3 fL (80.0-100.0); PLATELET COUNT 190 10x3/uL (130-400); RBC 4.59 10x6/uL (4.00-5.40); RDW 13.4 % (11.5-14.5); WBC 7.8 10x3/uL (4.8-10.8)
[2021-05-20 14:06] LABS: ALBUMIN 3.2 g/dL (3.4-5.0); ANION GAP 12.7 mmol/L (8-16); BILIRUBIN - TOTAL 0.69 mg/dL (0.2-1.3); CALCIUM 8.5 mg/dL (8.5-10.1); CARBON DIOXIDE 26.8 mmol/L (21.0-32.0); CREATININE - SERUM 1.5 mg/dL (0.6-1.3); POTASSIUM - SERUM 4.5 mmol/L (3.5-5.1); PROTEIN - SERUM 7.7 g/dL (6.4-8.2)
[2021-05-20 14:09] LABS: INR 1.07 (0.85-1.17); PROTIME 12.9 SECONDS (11.6-15.0)
[2021-05-20] MEDS ORDERED: PACERONE100 MG PO (14:28)
[2021-05-20 15:06] VITALS: BP 121/75
[2021-05-20 19:23] VITALS: BP 121/75; Ht 167.6 cm; Wt 82.3 kg
[2021-05-20 20:00] VITALS: BP 122/78
[2021-05-21] VITALS: BP 126/80
--- NOTE | 2021-05-21 01:52 | NUR ---
RESTING WITH EYES CLOSED, NO S/S DISTRESS NOTED. BED LOW, CL IN REACH.
[2021-05-21 06:39] VITALS: BP 136/71
--- NOTE | 2021-05-21 07:29 | NUR ---
RECIEVE REPORT. ALERT AND ORIENTED X4. SITTING UP IN BED. SINUS RHYTHM ON TELEMETRY. DENIES ANY NEEDS. RECIEVES LOVENOX INJ. CONTINUE PLAN OF CARE AND SAFETY PRECAUTIONS.
[2021-05-21 08:00] VITALS: BP 141/86
[2021-05-21 08:21] LABS: BASOPHILS 0.5 % (0-2); EOSINOPHILS 0 % (0-7); HEMATOCRIT 41.5 % (36.0-48.0); LYMPHOCYTES 12.1 % (15-50); MCHC 33.7 g/dL (31.0-37.0); MCV 94.9 fL (80.0-100.0); MONOCYTES 3.9 % (2-11); NEUTROPHILS 83.5 % (40-80); PLATELET COUNT 187 10x3/uL (130-400); RBC 4.37 10x6/uL (4.00-5.40); RDW 12.7 % (11.5-14.5)
[2021-05-21 08:40] LABS: ANION GAP 13.3 mmol/L (8-16); CALCIUM 8.4 mg/dL (8.5-10.1); CARBON DIOXIDE 23.8 mmol/L (21.0-32.0); POTASSIUM - SERUM 4.1 mmol/L (3.5-5.1)
[2021-05-21 08:41] LABS: CREATININE - SERUM 1.1 mg/dL (0.6-1.3)
[2021-05-21 08:58] LABS: WBC 3.8 10x3/uL (4.8-10.8)
[2021-05-21 12:00] VITALS: BP 122/77
[2021-05-21 16:00] VITALS: BP 128/78
--- NOTE | 2021-05-21 19:30 | NUR ---
ROUNDING DONE WITH PATIENT HAVING NO NEEDS VOICED. ON HEART MONITOR SHOWING CAF, ON ROOM AIR. LEFT FA PIV SEEN WITH NS INFUSING AT 30 CC/HR. ON LOVENOX.
[2021-05-21 20:00] VITALS: BP 122/82
[2021-05-22] VITALS: BP 136/77
--- NOTE | 2021-05-22 02:18 | NUR ---
RESTING THIS EVENING, NO COMPLAINTS. RESP ARE EVEN.
[2021-05-22 04:00] VITALS: BP 121/82
[2021-05-22 07:01] LABS: BASOPHILS 0.2 % (0-2); EOSINOPHILS 0 % (0-7); HEMATOCRIT 39.8 % (36.0-48.0); HEMOGLOBIN 13.3 g/dL (12-16); LYMPHOCYTES 6.3 % (15-50); MCHC 33.4 g/dL (31.0-37.0); MCV 95.7 fL (80.0-100.0); MEAN PLATELET VOLUME 8.4 fL (7.4-10.4); MONOCYTES 5.5 % (2-11); PLATELET COUNT 179 10x3/uL (130-400); RBC 4.16 10x6/uL (4.00-5.40); RDW 13.2 % (11.5-14.5)
[2021-05-22 07:08] LABS: ANION GAP 11.7 mmol/L (8-16); CARBON DIOXIDE 25.9 mmol/L (21.0-32.0); CREATININE - SERUM 1.1 mg/dL (0.6-1.3); POTASSIUM - SERUM 4.6 mmol/L (3.5-5.1)
[2021-05-22 07:42] LABS: WBC 7.5 10x3/uL (4.8-10.8)
[2021-05-22 08:42] VITALS: BP 124/65
[2021-05-22 18:07] VITALS: BP 120/67
[2021-05-23 01:21] VITALS: BP 128/80
[2021-05-23 03:19] VITALS: BP 129/89
[2021-05-23 05:43] LABS: BASOPHILS 0.1 % (0-2); EOSINOPHILS 0 % (0-7); HEMATOCRIT 37.9 % (36.0-48.0); HEMOGLOBIN 12.7 g/dL (12-16); LYMPHOCYTES 5.8 % (15-50); MCH 32.1 pg (26.0-34.0); MCHC 33.6 g/dL (31.0-37.0); MCV 95.4 fL (80.0-100.0); MEAN PLATELET VOLUME 8.2 fL (7.4-10.4); NEUTROPHILS 88.1 % (40-80); PLATELET COUNT 171 10x3/uL (130-400); RBC 3.97 10x6/uL (4.00-5.40)
[2021-05-23 06:05] LABS: CARBON DIOXIDE 28.1 mmol/L (21.0-32.0); CREATININE - SERUM 0.9 mg/dL (0.6-1.3); POTASSIUM - SERUM 4.1 mmol/L (3.5-5.1)
[2021-05-23 06:13] VITALS: BP 131/84
[2021-05-23 08:15] VITALS: BP 131/86
--- NOTE | 2021-05-23 08:15 | NUR ---
PT RECEIVED ASLEEP IN BED. AROUSE TO VOICE/TOUCH. TF VIA PEG.
--- NOTE | 2021-05-23 08:29 | CN ---
PATIENT NAME:NURA LOYA MEDICAL RECORD: [id number] : 45 LOCATION:D. D.2123 ADMIT DATE: 05/20/21 ACCOUNT: [id number] CONSULTING PHYSICIAN: STEVEN PALOMARES MD REFERRING PHYSICIAN: VIOLA MERRILL MD DATE OF CONSULTATION: 05/21/2021 HISTORY OF PRESENT ILLNESS: A 75-year-old lady, well known to me with a history of atrial fibrillation as well as hypertension and hyperlipidemia, has been doing fairly well up until , began having subjective fever, chills. She does carry a history of sarcoidosis with pulmonary involvement, not a DOAC candidate for bleeding reasons in the past. She is on low dose aspirin, found to have AFib with RVR as well as a viral bronchitis. We were asked to see her concerning her cardiovascular status. PAST MEDICAL HISTORY: Includes; 1. History of atrial fibrillation, not DOAC candidate. 2. Hypertension. 3. Hyperlipidemia. 4. Pulmonary sarcoid. 5. Gastroesophageal reflux disease. 6. Osteoarthritis. ALLERGIES: INCLUDE TRAMADOL, DICLOFENAC. MEDICATIONS: Chronically include pravastatin 10 mg p.o. daily, amiodarone 100 mg p.o. daily, hydrochlorothiazide 25 daily, aspirin 81 daily, omeprazole 20 mg p.o. daily. SOCIAL HISTORY: Retired from previous job, does work part-time at a camp. Nonsmoker, never has. Nondrinker. Easily takes care of all her ADLs. REVIEW OF SYSTEMS: The patient reports easy bruising but reports no swollen glands. The patient reports no fever, no night sweats, no significant weight gain, no significant weight loss. No significant exercise tolerance. The patient reports no dry eyes, no irritation, no vision change. Patient reports no difficulty hearing and no ear pain. Patient reports no frequent nose bleeds or nose and sinus problems. Patient reports on arm pain on exertion. No shortness of breath while lying down. No history of heart murmur. Patient reports no cough, no wheezing or coughing up blood. Patient reports no abdominal pain, no vomiting. Normal appetite. No diarrhea and not vomiting blood. No nausea and no constipation. Patient reports no incontinence. No difficulty urinating. No hematuria. No increased frequency. Patient reports no muscle aches. No weakness, no arthralgias, no back pain. No swelling of the extremities. Patient reports no abnormal mole, no jaundice, no rashes. Reports no loss of consciousness. No weakness and no numbness. No seizures, dizziness, or headaches. The patient reports no depression, no sleep disturbance, feeling safe in a relationship and no alcohol abuse. Patient reports on fatigue. Reports no runny nose or sinus pressure. No itching, no hives, and no frequent sneezing. PHYSICAL EXAMINATION: GENERAL: Pleasant. No acute distress, appears stated age, alert and oriented times 3. VITAL SIGNS: 141/86, pulse currently 71. CONSULT REPORT [id number] NURA LOYA HEENT: Normocephalic, atraumatic. Face is symmetrical. Tongue is midline. NECK: No JVD or bruit. HEART: Irregular, rate is controlled. A II/ systolic ejection murmur. LUNGS: Slightly prolonged expiratory phase expiratory wheezes. ABDOMEN: Soft and nontender. EXTREMITIES: Pulses 2+. No edema. NEUROLOGIC: Grossly intact. DIAGNOSTIC DATA: EKG shows atrial fibrillation with RVR initially, rate is better controlled at this point after treating underlying pulmonary symptoms. IMPRESSION: Atrial fibrillation with rapid ventricular response. Normal coronaries in the past via angiography. Rates are improving at this point on continued amiodarone. Again, with previous history, would not use DOAC therapy. Suspect with decreased catecholamine drive, etc., rate should be better controlled in the near future. Thanks for the consultation. TRANSINT:[id number] Voice Confirmation ID: [id number] DOCUMENT ID: [id number] STEVEN PALOMARES MD at 0829 CC: [id number] DICTATION DATE: 05/21/2159 [employer] WORKER: 05/21/21 1125 ADM IN [facility] [address] [id number]
[2021-05-23 12:41] VITALS: BP 119/68
[2021-05-23] MEDS ORDERED: OMNICEF300 MG PO (13:33)
[2021-05-23] MEDS ORDERED: PREDNISONE20 MG PO (13:33)
--- NOTE | 2021-05-23 15:32 | NUR ---
PT'S DISCHARGE INSTRUCTIONS REVIEWED AND SIGNED. FRIEND HERE FOR TRANSPORTATION HOME. IV REMOVED.
== END 2021-05-23 15:33 | disposition home or self-care (01) | DRG 310 ==
LOC: D.M2 12:15
PROVIDERS: ADMIT Family Medicine; ATTEND Family Medicine
DX: I48.92 Unspecified atrial flutter (principal); J20.9 Acute bronchitis, unspecified; N18.30 Chronic kidney disease, stage 3 unspecified; I44.1 Atrioventricular block, second degree; I48.91 Unspecified atrial fibrillation; K21.9 Gastro-esophageal reflux disease without esophagitis; J30.9 Allergic rhinitis, unspecified; D86.0 Sarcoidosis of lung; R09.02 Hypoxemia; J45.909 Unspecified asthma, uncomplicated